=== PATIENT | female | born 1960 | race Caucasian/White ===

== ENCOUNTER 2020-01-17 16:15 | Emergency (ER) | payer OTHER ==
[~2020-01-17] VITALS: Ht 170.2 cm; Wt 117.0 kg
[2020-01-17] MEDS ORDERED: TYLENOL WITH CO1 TA1 PO (17:49)
[2020-01-17] MEDS ORDERED: DOXYCYCLINE 10100 MG PO (17:49)
[2020-01-17 18:07] VITALS: BP 146/76
== END 2020-01-17 18:07 | disposition home or self-care (01) ==
LOC: M.ERS 16:15 → EDSEX 16:15 → M.ERS 18:07
DX: S01.01XA Laceration without foreign body of scalp, initial encounter (principal); W01.0XXA Fall on same level from slipping, tripping and stumbling without subsequent striking against object, initial encounter; Y93.89 Activity, other specified; Y92.89 Other specified places as the place of occurrence of the external cause; Y99.8 Other external cause status

== ENCOUNTER 2020-01-28 16:01 | Emergency (ER) | payer OTHER ==
[~2020-01-28] VITALS: Ht 165.1 cm; Wt 117.0 kg
[~2020-01-28 16:01] MED LIST: DOXYCYCLINE 10100 MG PO; TYLENOL WITH CO1 TA1 PO
[2020-01-28 16:25] VITALS: BP 174/80
== END 2020-01-28 16:26 | disposition home or self-care (01) ==
LOC: M.ERS 16:01
DX: S01.01XD Laceration without foreign body of scalp, subsequent encounter (principal); X58.XXXD Exposure to other specified factors, subsequent encounter